=== PATIENT | female | born 1955 | race Caucasian/White ===

== ENCOUNTER → 2017-04-30 | Outpatient (CLI) | payer BC ==
--- NOTE | 2017-04-30 12:51 | RADRPT ---
EXAM DATE/TIME: 04/30/2017 00:00 [place] COMPARISON: No previous studies available for comparison. INDICATIONS : Difficulty swallowing liquids, chokes on liquids occasionally. FLUORO TIME: 1.3 minutes IMAGE COUNT: 0 CONTRAST: Dose as prescribed by speech pathologist. MEDICAL HISTORY : Gastroesophageal reflux disease. SURGICAL HISTORY : None. ENCOUNTER: Initial ACUITY: >1 year PAIN SCORE: 0/10 LOCATION: esophagus FINDINGS: A modified barium swallow was performed with speech pathology. Patient was given a variety of liquids , solids, and pill to swallow. No episodes of aspiration observed. For a full detailed report, see report by the speech pathologist. CONCLUSION: Barium swallow performed in conjunction with speech pathology. Fredi Molina MD on April 30, 2017 at 12:49 Board Certified Radiologist. This report was verified electronically.
== END ==
LOC: HRAD 11:35
DX: R13.12 Dysphagia, oropharyngeal phase (principal)
CPT/HCPCS: 74230; 92611; G8996; G8997; G8998